=== PATIENT | female | born 1960 | race Hispanic/Latino ===

== ENCOUNTER 2023-04-30 05:41 | Observation (INO) | payer OTHER ==
[2023-04-30] MEDS ORDERED: Bupivacaine PF 0.5% 30 ML VIAL ONE (06:12)
[2023-04-30 06:58] LABS: Hemoglobin 14.1 g/dL (12.0-15.5); Mean Corpuscular HGB CONC 33.6 g/dL (32.0-36.0); Mean Corpuscular Hemoglobin 29.9 pg (27.0-33.0); Mean Platelet Volume 9.4 fl (7.4-10.4); Platelet Count 195 10x3/uL (150-450); RBC Distribution Width 12.6 % (11.5-14.5); Red Blood Cell (RBC) Count 4.72 10x6/uL (3.90-5.03); White Blood Cell (WBC) Count 4.1 10x3/uL (3.5-10.5)
[2023-04-30] MEDS ORDERED: Midazolam HCl 2 mg/2 ml Vial ONE (07:01)
[2023-04-30] MEDS ORDERED: fentaNYL 50 mcg/mL 1 mL Vial ONE ×3 (07:01→08:47)
[2023-04-30] MEDS ORDERED: PROPOFOL 20 ML ONE (07:14)
[2023-04-30] MEDS ORDERED: CEFAZOLIN 1 GM VIAL ONE (07:15)
[2023-04-30 07:40] LABS: Anion Gap 14 mmol/L (10-20); BUN (Urea Nitrogen) 13 mg/dL (9.8-20.1); Calc. Creatinine Clearance 79 mL/min (70-130); Calcium 9.2 mg/dL (7.8-10.44); Carbon Dioxide 23 mmol/L (23-31); Chloride 107 mmol/L (98-107); Estimated GFR 88; Glucose 86 mg/dL (80-115); Potassium 3.8 mmol/L (3.5-5.1); Sodium 140 mmol/L (136-145)
[2023-04-30] MEDS ORDERED: Senokot S 8.6-50 MG TAB PO PRN (09:32)
[2023-04-30] MEDS ORDERED: Acetaminophen 325 MG TAB PO PRN (09:32)
[2023-04-30] MEDS ORDERED: Calcium Carbonate 500 MG ChewTAB PO PRN (09:32)
[2023-04-30] MEDS ORDERED: HumaLOG 300 UNITS/3 ML VIAL SC PRN ×2 (09:39)
[2023-04-30] MEDS ORDERED: Glucagon 1 MG/ML KIT IM PRN (09:39)
[2023-04-30] MEDS ORDERED: Dextrose 5% in Water 1,000 ML IV PRN (09:39)
[2023-04-30] MEDS ORDERED: Dextrose 50% Abboject 50 ML SYRINGE SLOW IVP PRN (09:39)
[2023-04-30] MEDS ORDERED: Morphine 4 MG/ML VIAL ONE (10:47)
[2023-04-30] MEDS ORDERED: Iopamidol 370 76% 100 ML VIAL ONE (11:06)
[2023-04-30 12:17] LABS: Magnesium 1.8 mg/dL (1.6-2.6)
[2023-04-30 12:23] LABS: Troponin I Less than 0.010 ng/mL (< 0.028)
[2023-04-30 13:10] LABS: Troponin I 0.015 ng/mL (< 0.028)
[2023-04-30 16:37] LABS: Troponin I 0.015 ng/mL (< 0.028)
[2023-04-30] MEDS ORDERED: Morphine 4 MG/ML VIAL SLOW IVP SCH (17:30)
[2023-04-30] MEDS ORDERED: Magnesium 2 GM/50 ML(in water) 2 GM in Premix Bag 1 BAG IVPB SCH (17:59)
[2023-04-30 19:05] LABS: Troponin I 0.015 ng/mL (< 0.028)
[2023-04-30] MEDS ORDERED: Lantus 1000 UNITS/10 ML VIAL SC SCH (21:00)
[2023-04-30] MEDS ORDERED: Sertraline 25 MG TAB PO SCH (21:00)
[2023-04-30] MEDS: Metoprolol Tartrate 25 MG TAB PO SCH (21:17)
[2023-04-30] MEDS: Ondansetron PF 4 MG/2 ML Vial IVP PRN (21:27)
[2023-04-30] MEDS: Morphine 2 MG/ML VIAL SLOW IVP PRN (22:55)
[2023-05-01] MEDS: Pantoprazole 40 MG VIAL IVP SCH ×2 (00:42→14:01)
[2023-05-01] MEDS ORDERED: Nitroglycerin 0.4 MG TAB 1 EACH SL PRN (00:48)
[2023-05-01] MEDS ORDERED: Nitroglycerin 0.4 MG TAB (25 Tab Bottle) SL PRN (01:00)
[2023-05-01] MEDS: Morphine 2 MG/ML VIAL SLOW IVP PRN (03:52)
[2023-05-01] MEDS: Ondansetron PF 4 MG/2 ML Vial IVP PRN (03:59)
[2023-05-01 04:21] LABS: #Monocytes 0.3 10x3/uL (0.0-1.1); #Neutrophils 3.7 10x3/uL (1.5-8.4); %Basophils 0.7 % (0.0-2.0); %Eosinophils 0.4 % (0.0-6.0); %Lymphocytes 11.3 % (18.0-47.0); %Neutrophils 81.4 % (40.0-75.0); Hematocrit 40.2 % (34.9-44.5); Hemoglobin 13.6 g/dL (12.0-15.5); Mean Corpuscular HGB CONC 33.8 g/dL (32.0-36.0); Mean Corpuscular Volume 88.5 fl (81.6-98.3); Mean Platelet Volume 10.1 fl (7.4-10.4); Platelet Count 193 10x3/uL (150-450); RBC Distribution Width 12.5 % (11.5-14.5); Red Blood Cell (RBC) Count 4.54 10x6/uL (3.90-5.03); White Blood Cell (WBC) Count 4.5 10x3/uL (3.5-10.5)
[2023-05-01 04:39] LABS: ALT (SGPT) 535 U/L (8-55); AST (SGOT) 733 U/L (5-34); Albumin 4.1 g/dL (3.4-4.8); Alkaline Phosphatase 185 U/L (40-110); Anion Gap 14 mmol/L (10-20); BUN (Urea Nitrogen) 10 mg/dL (9.8-20.1); Bilirubin, Total 1.4 mg/dL (0.2-1.2); Calc. Creatinine Clearance 83 mL/min (70-130); Calcium 9.2 mg/dL (7.8-10.44); Carbon Dioxide 23 mmol/L (23-31); Chloride 102 mmol/L (98-107); Cholesterol 140 mg/dl (< 200 Desired); Estimated GFR 94; Globulin 2.7 g/dL (2.4-3.5); Glucose 117 mg/dL (80-115); HDL Cholesterol 46 mg/dL (>60 Neg Risk); LDL Cholesterol, Calculated 85 mg/dL; Magnesium 2.2 mg/dL (1.6-2.6); Potassium 3.9 mmol/L (3.5-5.1); Protein, Total 6.8 g/dL (5.8-8.1); Sodium 135 mmol/L (136-145); Triglycerides 47 mg/dL (Less than 150)
[2023-05-01 07:00] LABS: Bilirubin Neg (Negative); Blood, Urine 25 (Negative); Clarity Clear (Clear); Glucose, Urine (Dipstick) Normal (Negative); Ketone, Urine 15 mg/dL (Negative); Leukocyte Negative (Negative); Nitrite Negative (Negative); Protein, Urine (Dipstick) 30 mg/dl (Neg-Trace); pH, Urine 6.5 (5.0-9.0)
[2023-05-01 07:11] LABS: Bacteria/HPF Rare-Few HPF (None Seen); RBC/HPF 0-3 HPF (0-3); Squamous Epithelial 0-3 HPF (0-3); WBC/HPF 0-3 HPF (0-3)
[2023-05-01] MEDS ORDERED: Rosuvastatin 20 MG TAB PO SCH (09:00)
[2023-05-01] MEDS ORDERED: Losartan 25 MG TAB PO SCH (09:00)
[2023-05-01] MEDS ORDERED: Empagliflozin 10 MG TAB PO SCH (09:00)
[2023-05-01] MEDS ORDERED: Clopidogrel Bisulfate 75 MG TAB PO SCH (09:00)
[2023-05-01] MEDS ORDERED: Montelukast Sodium 10 mg Tablet PO SCH (09:00)
[2023-05-01] MEDS: Metoprolol Tartrate 25 MG TAB PO SCH (09:23)
[2023-05-01 12:55] VITALS: BMI 28.0
[2023-05-01 13:18] LABS: Hemoglobin A1c 5.7 % (4.0-6.0)
[2023-05-01 13:41] VITALS: BP 128/62; TEMP 98.2
== END 2023-05-01 16:25 | disposition home or self-care (01) ==
LOC: CSHSDC 05:41 → SUATTDRO 05:41 → CSHTELE 09:32
PROVIDERS: ADMIT Internal Medicine; ATTEND Internal Medicine
PROC: 0SGQ0JZ Fusion of Left Toe Phalangeal Joint with Synthetic Substitute, Open Approach (ICD-10-PCS; principal; 2023-04-30)
DX: M20.42 Other hammer toe(s) (acquired), left foot (principal); E11.9 Type 2 diabetes mellitus without complications; I10 Essential (primary) hypertension; E78.5 Hyperlipidemia, unspecified; I49.9 Cardiac arrhythmia, unspecified; I73.9 Peripheral vascular disease, unspecified; K21.9 Gastro-esophageal reflux disease without esophagitis; Z79.899 Other long term (current) drug therapy; Z79.4 Long term (current) use of insulin
CPT/HCPCS: 36415; 36416; 71275; 74174; 80048; 80053; 80061; 81001; 83036; 83735; 84484; 85025; 85027; 93005; 93010; 93306; 94760; 96372; 96374; 96375; 96376; C9113; G0378; J0690; J1650; J1815; J2250; J2270; J2272; J2405; J2704; J3010; J3475; Q9967; S0020